=== PATIENT | female | born 1985 | race Two or more races ===

== ENCOUNTER 2017-03-27 23:30 | Emergency (ER) | payer MEDICAID ==
[~2017-03-27] VITALS: Ht 160 cm; Wt 57.2 kg
[2017-03-27 23:39] VITALS: BP 116/71
[2017-03-28 00:24] LABS: Basophils # (auto) 0 uL; Basophils % (auto) 0.5 % (0.0-2.0); Eosinophils # (auto) 0 uL; Eosinophils % (auto) 0.5 % (0.0-7.0); Hemoglobin 13.3 g/dL (12.2-16.2); Lymphocytes # (auto) 1.6 uL; Lymphocytes % (auto) 16.5 % (10.0-50.0); Mean Corpuscular Hemoglobin 31.8 pg (28.0-32.0); Mean Corpuscular Volume 93.7 fL (80.0-100.0); Mean Platelet Volume 8.4 fL (6.9-10.8); Monocytes # (auto) 0.6 uL; Monocytes % (auto) 5.8 % (0.0-12.0); Neutrophils # (auto) 7.5 uL; Neutrophils % (auto) 76.7 % (37.0-80.0); Platelet Count (auto) 288 10^3/uL (140-450); Red Cell Distribution Width 12.5 % (11.8-14.3); White Blood Cell 9.8 10^3/uL (4.4-10.8)
[2017-03-28 00:28] LABS: Urine Bilirubin Negative (Negative); Urine Blood Negative /uL (Negative); Urine Color Yellow (Yellow); Urine Glucose Normal (Normal); Urine Ketone Negative (Negative); Urine Nitrite Negative (Negative); Urine RBC <1 /hpf (0 - 4); Urine Squamous Epithelial Cell FEW /hpf (<5); Urine Urobilinogen Normal (Negative)
[2017-03-28 00:29] LABS: BUN/Creatinine Ratio 18.6; Calcium 9.3 mg/dL (8.5-10.1); Potassium 3.8 mmol/L (3.5-5.1)
[2017-03-28 00:32] LABS: Bilirubin, Total 0.3 mg/dL (0.2-1.0)
[2017-03-28] MEDS ORDERED: HYDROcodone-ACET 5/325MG TAB PO ONE (05:15)
== END 2017-03-28 06:03 | disposition home or self-care (01) ==
LOC: ER 23:33
DX: K80.20 Calculus of gallbladder without cholecystitis without obstruction (principal); N39.0 Urinary tract infection, site not specified
CPT/HCPCS: 36415; 74176; 80053; 81001; 82150; 83690; 84702; 85025